=== PATIENT | male | born 1985 ===

== ENCOUNTER 2017-01-16 10:33 | Emergency (ER) | payer MEDICAID, OTHER ==
[2017-01-16 10:33] VITALS: BMI 33.0
[2017-01-16 10:54] VITALS: BP 112/76; PULSE 87; RESP 20; TEMP 98.4; O2SAT 98
--- NOTE | 2017-01-16 12:51 | ED PDOC ---
HPI: Back Time Seen by Provider: 01/16/17 12:25 Chief Complaint (Nursing): Back Pain Chief Complaint (Provider): Back pain History Per: Patient History/Exam Limitations: no limitations Onset/Duration Of Symptoms: Days (x2 weeks) Current Symptoms Are (Timing): Still Present Additional Complaint(s): 31 y/o male who presents to the emergency department with a complaint of a back pain x2 weeks. Denies fever, chills, nausea, vomiting, or complications with urination. Of note, previous CT scan show that patient has a herniated disc. Past Medical History Reviewed: Historical Data, Nursing Documentation, Vital Signs Vital Signs: Last Vital Signs Temp 98.4 F 01/16/17 10:52 Pulse 87 01/16/17 10:52 Resp 20 01/16/17 10:52 BP 112/76 01/16/17 10:52 Pulse Ox 98 01/16/17 10:52 - Medical History PMH: No Chronic Diseases Denies: Chronic Kidney Disease - Family History Family History: States: Unknown Family Hx - Social History Current smoker - smoking cessation education provided: Yes (Light Smoker < 10 Cigarettes Daily) Alcohol: None Drugs: Denies - Immunization History Hx Tetanus Toxoid Vaccination: Yes (couple months ago) Hx Influenza Vaccination: Yes Hx Pneumococcal Vaccination: Yes - Home Medications Home Medications: Ambulatory Orders Medication Instructions Recorded Pseudoephedrine HCl [Sudafed] 60 mg PO Q6 #30 tablet 10/31/16 Cyclobenzaprine [Cyclobenzaprine 10 mg PO BID #14 tab 01/16/17 HCl] Ketorolac Tromethamine [Toradol] 10 mg PO TID #20 tab 01/16/17 - Allergies Allergies/Adverse Reactions: Allergies Allergy/AdvReac Type Severity Reaction Status Date / Time No Known Allergies Allergy Verified 01/16/17 10:51 Review of Systems ROS Statement: Except As Marked, All Systems Reviewed And Found Negative Constitutional: Negative for: Fever, Chills Gastrointestinal: Negative for: Nausea, Vomiting Genitourinary Male: Negative for: Dysuria, Frequency, Hematuria Musculoskeletal: Positive for: Back Pain Physical Exam - Reviewed Nursing Documentation Reviewed: Yes Vital Signs Reviewed: Yes - Physical Exam Appears: Positive for: Non-toxic, No Acute Distress Head Exam: Positive for: ATRAUMATIC, NORMOCEPHALIC Skin: Positive for: Normal Color, Warm, Dry Back: Positive for: L CVA Tenderness, R CVA Tenderness. Negative for: Other ( No midline tenderness) Neurologic/Psych: Positive for: Alert, Oriented - Laboratory Results Urine dip results: Negative for: Leukocyte Esterase, Blood, Nitrate, Ketones, Glucose, Bilirubin, Protein - ECG O2 Sat by Pulse Oximetry: 98 (RA) Pulse Ox Interpretation: Normal Medical Decision Making Medical Decision Making: Time: 12:25 Initial impression: Exacerbation of herniated disc Initial plan: --ED Urine Dipstick (POC) --Flexeril 10 mg PO --Toradol 30 mg IM --Revaluation Time: 12:45 Upon provider reevaluation patient is feeling better, is medically stable, and requires no further treatment in the ED at this time. Patient will be discharged home. Counseling was provided and all questions were answered regarding diagnosis and need for follow up with pain management referrals. There is agreement to discharge plan. Return if symptoms persist or worsen. Scribe Attestation: Documented by Silvana Lees, acting as a scribe for Radha Major PA-C. Provider Scribe Attestation: All medical record entries made by the Scribe were at my direction and personally dictated by me. I have reviewed the chart and agree that the record accurately reflects my personal performance of the history, physical exam, medical decision making, and the department course for this patient. I have also personally directed, reviewed, and agree with the discharge instructions and disposition. Disposition - Clinical Impression Clinical Impression: Back pain - Patient ED Disposition Is Patient to be Admitted: No Counseled Patient/Family Regarding: Studies Performed, Diagnosis, Need For Followup, Rx Given - Disposition Referrals: [facility] [Provider Group] [facility] [Provider Group] [facility] [Outside] Hunter Hawthorne MD [IM] - Disposition: Routine/Home Disposition Time: 13:23 Condition: STABLE Prescriptions: Cyclobenzaprine [Cyclobenzaprine HCl] 10 mg PO BID #14 tab Ketorolac Tromethamine [Toradol] 10 mg PO TID #20 tab Instructions: Lumbar Disc Herniation (ED)
== END 2017-01-16 13:28 | disposition home or self-care (01) ==
LOC: H.ER 10:33
DX: M54.9 Dorsalgia, unspecified (principal)